=== PATIENT | male | born 1955 | race Caucasian/White ===

== ENCOUNTER 2017-01-14 06:13 | Day surgery (SDC) | payer MEDICAID ==
[~2017-01-14] VITALS: Ht 188 cm; Wt 150.6 kg
[~2017-01-14 06:13] MED LIST: ACCUPRIL10 M1 PO; ALEVE 220MG220 MG PO; ANTI-DIARRHEAL2 MG PO; DALIRESP500 MCG PO; GLUCOPHAGE500 MG/TAB PO; HYTRIN 5MG C5 MG/CAP PO; JANTOVEN2.5 MG PO; MEVACOR10 MG PO; PROTONIX 40MG T40 MG PO; RT ADVAIR 228 DISKUS IH; TOPROL XL100 MG PO; TUDORZA IH; VITAMIN D 1001000 IU PO
[2017-01-14 06:47] VITALS: BP 124/85; PULSE 83; TEMP 97.2
[2017-01-14] MEDS ORDERED: RT SPIRIVA18 MCG IH (06:55)
[2017-01-14] MEDS ORDERED: [UNRECOGNIZED DRUG - OTHER] (06:56)
[2017-01-14] MEDS ORDERED: SYMBICORT (06:56)
[2017-01-14] MEDS ORDERED: MEVACOR10 MG PO (06:57)
[2017-01-14] MEDS ORDERED: JANUVIA 100MG100 MG PO (07:00)
[2017-01-14 08:15] VITALS: BP 109/69; PULSE 65; TEMP 97.1
[2017-01-14 08:30] VITALS: BP 130/50; PULSE 64
[2017-01-14 08:45] VITALS: BP 101/63; PULSE 65
== END 2017-01-14 09:00 | disposition home or self-care (01) ==
LOC: SDCO 06:13
DX: Z12.11 Encounter for screening for malignant neoplasm of colon (principal); D12.2 Benign neoplasm of ascending colon; D12.5 Benign neoplasm of sigmoid colon; K22.8 Other specified diseases of esophagus; K21.9 Gastro-esophageal reflux disease without esophagitis; K22.2 Esophageal obstruction; I25.2 Old myocardial infarction; I10 Essential (primary) hypertension; J44.9 Chronic obstructive pulmonary disease, unspecified; B18.2 Chronic viral hepatitis C; Z86.010 Personal history of colon polyps; Z79.01 Long term (current) use of anticoagulants; Z79.84 Long term (current) use of oral hypoglycemic drugs
CPT/HCPCS: OP; J2250; J3010; J7030

== ENCOUNTER 2020-07-04 07:47 | Day surgery (SDC) | payer MEDICARE, OTHER ==
[~2020-07-04] VITALS: Ht 188 cm; Wt 144.8 kg
[~2020-07-04 07:47] MED LIST changes: +JANUVIA 100MG100 MG PO; +MEVACOR 20M20 MG/TAB PO; +RT SPIRIVA18 MCG IH; +SYMBICORT; +[UNRECOGNIZED DRUG - OTHER]
[2020-07-04 09:17] VITALS: BP 151/78; PULSE 67; TEMP 98.7
[2020-07-04] MEDS ORDERED: ASPIRIN 32325 MG/TAB PO (09:25)
[2020-07-04] MEDS ORDERED: VICTOZA6 MG/ML SQ (09:28)
[2020-07-04] MEDS ORDERED: HYTRIN 5MG C5 MG/CAP PO (09:30)
[2020-07-04 10:35] VITALS: BP 129/86; PULSE 69; TEMP 97.6
--- NOTE | 2020-07-04 10:35 | NUR ---
Pt to [facility] via cart from ENDO. Pt awake and alert. Denies pain, nausea, and shortness of breath. Daughter in room. Muffin and water given per pt request. Will continue to monitor. Call light within reach.
[2020-07-04 10:50] VITALS: BP 144/82; PULSE 69
--- NOTE | 2020-07-04 10:50 | NUR ---
Pt continues to rest. Denies needs. Call light within reach.
[2020-07-04 11:05] VITALS: BP 117/70; PULSE 69
--- NOTE | 2020-07-04 11:05 | NUR ---
Pt tolerating po food and fluids without difficulties. Denies needs. Call light within reach.
--- NOTE | 2020-07-04 11:20 | NUR ---
Discharge instructions reviewed. Pt voices understanding. IV site disocntinued with all parts intact. Pt up to dress. Call light within reach.
[2020-07-04 11:21] VITALS: BP 120/75; PULSE 74
--- NOTE | 2020-07-04 11:30 | NUR ---
Pt escorted to private car via wheel chair. Pt accompanied home by his daughter.
== END 2020-07-04 11:30 | disposition home or self-care (01) ==
LOC: SDCO 07:47
DX: C34.11 Malignant neoplasm of upper lobe, right bronchus or lung (principal); C34.92 Malignant neoplasm of unspecified part of left bronchus or lung; J44.9 Chronic obstructive pulmonary disease, unspecified; E11.9 Type 2 diabetes mellitus without complications; E78.5 Hyperlipidemia, unspecified; I10 Essential (primary) hypertension; I26.99 Other pulmonary embolism without acute cor pulmonale; I25.2 Old myocardial infarction; G47.10 Hypersomnia, unspecified; G47.33 Obstructive sleep apnea (adult) (pediatric); K21.9 Gastro-esophageal reflux disease without esophagitis; F17.210 Nicotine dependence, cigarettes, uncomplicated; Z20.822 Contact with and (suspected) exposure to COVID-19; Z99.89 Dependence on other enabling machines and devices; Z95.5 Presence of coronary angioplasty implant and graft; Z79.01 Long term (current) use of anticoagulants; Z79.84 Long term (current) use of oral hypoglycemic drugs; Z79.899 Other long term (current) drug therapy
CPT/HCPCS: J2704; J3010; J7030

== ENCOUNTER → 2020-07-10 | Outpatient (CLI) | payer MEDICARE ==
[~2020-07-10] MED LIST changes: +ASPIRIN 32325 MG/TAB PO; +VICTOZA6 MG/ML SQ
[2020-07-10 12:33] LABS: CREATININE, serum 0.93 (0.66-1.25); POTASSIUM 5.1 mmol/L (3.4-5.0)
== END ==
LOC: COL.RAD 11:51
PROVIDERS: Internal Medicine Pulmonary Disease
DX: R91.8 Other nonspecific abnormal finding of lung field (principal)
CPT/HCPCS: A9585

== ENCOUNTER 2022-06-04 06:29 | Day surgery (SDC) | payer MEDICARE, OTHER ==
[~2022-06-04] VITALS: Ht 188 cm; Wt 140.5 kg
[2022-06-04] MEDS ORDERED: OMEGA-31 SGL PO (07:22)
[2022-06-04] MEDS ORDERED: IPRATROPIUM BROM3 M1 IH (07:23)
[2022-06-04] MEDS ORDERED: PROAIR HFA0.09 MG/AC IH (07:24)
[2022-06-04] MEDS ORDERED: TRELEGY ELLIPT1 EACH IH (07:25)
[2022-06-04] MEDS ORDERED: DALIRESP500 MCG PO (07:25)
[2022-06-04] MEDS ORDERED: RT ADVAIR 228 DISKUS IH (07:26)
[2022-06-04] MEDS ORDERED: PROTONIX 40MG T40 MG PO ×2 (07:26→07:27)
[2022-06-04] MEDS ORDERED: RT SPIRIVA18 MCG IH (07:26)
[2022-06-04] MEDS ORDERED: ASPIRIN 81M81 MG/TA2 PO (07:27)
[2022-06-04] MEDS ORDERED: COZAAR 50MG50 MG/TAB PO (07:28)
[2022-06-04] MEDS ORDERED: TOPROL XL100 MG PO (07:29)
[2022-06-04] MEDS ORDERED: NAPROSYN500 MG PO (07:30)
[2022-06-04] MEDS ORDERED: CHANTIX 1MG1 MG PO (07:30)
[2022-06-04] MEDS ORDERED: JARDIANCE25 (07:32)
[2022-06-04] MEDS ORDERED: VICTOZA6 MG/ML SQ (07:33)
[2022-06-04] MEDS ORDERED: GLUCOPHAGE1000 MG PO (07:33)
[2022-06-04] MEDS ORDERED: PROZAC 10MG10 MG PO (07:34)
[2022-06-04 07:49] VITALS: BP 160/88; PULSE 59; TEMP 98.2
--- NOTE | 2022-06-04 09:02 | NUR ---
Initial visit; Patient thanked Valve Grinder for looking in on him and offering encouragement, prayer and God's blessings prior to his surgical procedure. Patient states he appreciates Valve Grinder coming in.
[2022-06-04 09:20] VITALS: BP 98/61; PULSE 64; TEMP 97.6
[2022-06-04 09:35] VITALS: BP 108/68; PULSE 64
[2022-06-04 09:50] VITALS: BP 93/70; PULSE 68
[2022-06-04 10:05] VITALS: BP 104/71; PULSE 66
--- NOTE | 2022-06-04 17:59 | NUR ---
0920 PT TO [facility] FROM ENDO S/P BRONCHOSCOPE WITH BIOPSIES PLACED ON MONITOR, VSS ON RA, RT IN ROOM FOR SVNEB TX - PT TOLERATING WELL, COUGHING FREQUENTLY, NAD. DENIES COMPLAINT. A&O. FRIEND TO PICKUP UPON D/C HOME. RECEIVED REPORT AND ASSUMED CARE OF PT FROM ADEOLA GONZALEZ. ORDERS REVIEWED. PT HAS STRONG COUGH, PASSES SWALLOW EVAL - PROVIDED PO, TOLRATING WELL. PT HAS REMAINED A&O, NAD, VSS ON RA, TOLERATING PO, IS WITHOUT SIGNIFICANT COMPLAINT, COUGH SUBSIDED, HAS STEADY INDEPEDNET GAIT THRU OUT [facility] STAY. IV D/C'D. D/C INSTRUCTIONS, INSTRUCTIONS TO REMITTANCE CLERK MED SAMPLE AT DR SHARMA'S OFFICE REVIEWED AND HANDED TO PT. ALL QUESTIONS AND CONCERNS ADDRESSED TO PT SATISFACTION. TAKEN TO EXIT VIA W/C BY [facility] STAFF WITH ALL BELONGINGS AND PAPERWORK IN HAND, ASSISTED INTO PASSENGER SEAT OF V. SHORTY IS TO DRIVE HOME.
== END 2022-06-04 10:25 | disposition home or self-care (01) ==
LOC: SDCO 06:29
DX: C34.12 Malignant neoplasm of upper lobe, left bronchus or lung (principal); J44.9 Chronic obstructive pulmonary disease, unspecified; R91.1 Solitary pulmonary nodule; G47.33 Obstructive sleep apnea (adult) (pediatric); F17.210 Nicotine dependence, cigarettes, uncomplicated; Z99.81 Dependence on supplemental oxygen
CPT/HCPCS: J2704; J7120